=== PATIENT | female | born 1995 | race Caucasian/White ===

== ENCOUNTER 2016-03-19 17:13 | Emergency (ER) | payer OTHER ==
[~2016-03-19] VITALS: Ht 157.5 cm; Wt 56.4 kg
[~2016-03-19 17:13] MED LIST: ATARAX,VISTARIL25 MG PO; BACTRIM,SEPT1 TABLET PO; BACTRIM,SEPTRA S1 ML PO; DESMOPRESSIN A0.2 M1 PO
[2016-03-19 18:29] LABS: HEMATOCRIT 38.6 % (36.0-46.0); MCHC 35.2 G/DL (30.0-36.0); MCV 87.9 FL (83-99); MEAN PLAT.VOLUME 10.1 uM^3 (9.5-12.4); PLATELET COUNT 200 K/uL (156-360); RBC DIS.WIDTH-SD 37.8 % (39-53); RED BLOOD COUNT 4.39 M/uL (3.80-5.20); WHITE BLOOD COUNT 7.9 K/uL (4.1-10.2)
[2016-03-19 18:32] LABS: ADD MIUA? YES; BILIRUBIN NEGATIVE; BLOOD NEGATIVE; COLOR YELLOW ((YELLOW)); GLUCOSE (STRIP) NEGATIVE; KETONES NEGATIVE; LEUKOCYTES TRACE; NITRITE NEGATIVE; PROTEIN (STRIP) NEGATIVE; SPECIFIC GRAVITY 1.023 (1.000-1.030)
[2016-03-19 18:37] LABS: CHLORIDE 109 mEq/L (99-109); POTASSIUM 3.6 mEq/L (3.7-5.4); SODIUM 140 mEq/L (136-147)
[2016-03-19 18:39] LABS: GLUCOSE 81 mg/dL (70-99)
[2016-03-19 18:40] LABS: ANION GAP 11 MEQ/L (2-14)
[2016-03-19 18:41] LABS: TOTAL BILIRUBIN 0.5 mg/dL (0.0-1.0)
[2016-03-19 18:43] LABS: ALKALINE PHOSPHATASE 114 IU/L (3-129); GFR ESTIMATE (CALCULATED) > 59 mL/min/
[2016-03-19 18:44] LABS: UREA NITROGEN (BUN) 9 mg/dL (9-23)
[2016-03-19 18:46] LABS: LIPASE 10 U/L (1.0-51.0)
[2016-03-19 18:55] LABS: QUANTITATIVE HCG < 4.0 MIU/ML
[2016-03-19 19:08] LABS: BACTERIA 1+ /HPF; CASTS NONE SEEN /LPF; CRYSTALS NONE SEEN; EPITHELIAL CELLS 1+ /HPF; MUCUS 2+ /LPF; RED BLOOD CELLS 0-5 /HPF (0-5); WHITE BLOOD CELLS 0-5 /HPF (0-5)
[2016-03-19] MEDS ORDERED: MIRALAX255 GM PO (19:19)
[2016-03-19] MEDS ORDERED: ZOFRAN ODT4 MG PO (20:16)
[2016-03-19 20:31] VITALS: BP 125/75
== END 2016-03-19 20:33 | disposition home or self-care (01) ==
LOC: EME 17:13
PROVIDERS: Physician Assistant
DX: R10.9 Unspecified abdominal pain (principal); R11.2 Nausea with vomiting, unspecified; K59.00 Constipation, unspecified
CPT/HCPCS: 74000; 80053; 81003; 83690; 84702; 85027; 99281; 99283